=== PATIENT | female | born 1970 | race Caucasian/White ===

== ENCOUNTER 2020-11-09 07:58 | Day surgery (SDC) | payer OTHER ==
[~2020-11-09] VITALS: Ht 170.2 cm; Wt 101.0 kg
[2020-11-09] MEDS ORDERED: PEPCID20 MG PO (08:18)
[2020-11-09] MEDS ORDERED: IRON325 M1 PO (08:20)
--- NOTE | 2020-11-09 11:04 | NUR ---
11/09/20 1104 Erin Evangelista 1055 PATIENT AWAKE AND TALKING APPROPRIATELY WITH STAFF. RESP EVEN AND UNLABORED, ROOM AIR SATS >95%. PATIENT C/O ABD CRAMING, ENCOURAGE TO PASS GAS. 1100 PATIENT CONTINUES TO C/O ABD CRAMPING. REPOSITIONS SELF TO LEFT SIDE IN CURLED POSITION. RESP EVEN AND UNLABORED, ROOM AIR SATS >92%.
--- NOTE | 2020-11-09 13:48 | OR ---
[facility] [address] [place], [place] [address] Signed DATE OF OPERATION: 11/09/2020 SURGEON: Ina Alfaro MD PREOPERATIVE DIAGNOSES: 1. Gastroesophageal reflux with episodic dysphagia. 2. Colon screening. POSTOPERATIVE DIAGNOSES: 1. Hiatal hernia with distal esophageal stricture, no evidence of Marie's esophagus. 2. Diverticulosis of sigmoid and remaining colon. PROCEDURES: 1. Esophagogastroduodenoscopy with biopsy. 2. Total colonoscopy to cecum (difficult). ANESTHESIA: Intravenous sedation, fentanyl 275 mcg and versed 14 mg. INDICATION: This 50-year-old white woman is a patient of Izabel Donovan naturopathic physician in [place], [place]. She has complaints of reflux disease and occasions of dysphagia. She prefers pharmacology. She has taken a number of preparations for her reflux including aloe vera and other things which have had variable benefit. 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 Additionally, she has not had colonoscopy and has been recommended for screening colonoscopy as well. She is here to undergo upper endoscopy on the basis of her reflux symptoms, dysphagia and colonoscopy on the basis of screening. She understands the risks of bleeding, infection, and perforation with both procedures and wished to proceed. FINDINGS: Upper endoscopy demonstrated a moderate-sized hiatal hernia as well as a small distal esophageal stricture. The stricture was very short and was not amenable to a dilation with any significant benefit. Multiple biopsies were obtained. Additionally, she did have hiatal hernia associated with this, the stomach itself was reasonably normal. On colonoscopy, the prep was quite good, but it was quite challenging due to angulation deformity and extensive diverticular disease particularly on the left, though there were Electronically Signed By: INA ALFARO MD 11/09/20 1348 PATIENT NAME: TRENT WHITE OPERATIVE REPORT DATE OF : 70 REPORT #: [id number] PHYSICIAN: INA ALFARO MD PCP: IZABEL DONOVAN DC REPORT IS CONFIDENTIAL AND NOT TO BE RELEASED WITHOUT AUTHORIZATION [facility] [address] [place], [place] [address] Signed diverticula elsewhere throughout the colon. Complete colonoscopy was ultimately accomplished with intubation of the cecum, good visualization of the ileocecal valve and appendix. There were no other findings other than diverticulosis. DESCRIPTION OF PROCEDURE: The patient was brought to the endoscopy suite, given topical lidocaine hypopharyngeal spray anesthesia. A bite block was placed and intravenous sedation induced. The Olympus video upper endoscope was passed in the hypopharynx. The vocal cords appeared normal. Scope was advanced in the esophagus. The distal portion was a low-grade stricture, which was very short, not worrisome for malignancy. There was no associated Marie's epithelium. The scope was passed in the stomach, which was insufflated with air. Rugal folds were normal as was the antrum. The scope was passed through the pylorus into the duodenum. The duodenum was biopsied both in the bulb and 2nd portion to assess for celiac disease. The scope was withdrawn and biopsies taken of the antrum for both IRINEO and pathologic testing. Retroflexed view was undertaken showing a hiatal hernia, moderate in size. The scope was withdrawn to the distal esophagus and careful biopsies were obtained of the strictured area. This appeared most likely reflux related short-segment stricture not worrisome for malignancy, there was no associated Marie's epithelium, biopsies were taken elsewhere also. The midesophagus was biopsied, though it did not have typical appearance of the eosinophilic esophagitis. The scope was withdrawn and removed. Plans were then made for colonoscopy. Digital examination was undertaken and additional sedation given as needed. An Olympus video colonoscope was passed in the rectum and manipulated into the sigmoid, which had numerous diverticula and some angulation deformity. Various maneuvers were used to passed beyond this, which were unsuccessful. The scope was withdrawn and removed and another scope used. With time and fair amount of effort, ultimately the scope was passed beyond the sigmoid noting more diverticula of the left colon and ultimately passing the scope to the hepatic flexure. This too was somewhat challenging, but with abdominal wall stabilization and ultimately, a body position changed to supine position, the scope was passed ultimately to the cecum. The ileocecal valve and appendiceal orifice were well identified. The scope was then withdrawn and examination throughout showed no sign of abnormality specifically no polyps or colitis, but only diverticular formations. The patient was then taken to the recovery room in good condition having suffered no known complications. CONCLUDING DIAGNOSIS: 1. Hiatal hernia with distal esophagitis and low-grade stricture. 2. Extensive diverticular disease. PLAN: Electronically Signed By: INA ALFARO MD 11/09/20 1348 PATIENT NAME: TRENT WHITE OPERATIVE REPORT DATE OF : 70 REPORT #: [id number] PHYSICIAN: INA ALFARO MD PCP: IZABEL DONOVAN DC REPORT IS CONFIDENTIAL AND NOT TO BE RELEASED WITHOUT AUTHORIZATION [address] [address] Signed 1. I would have her reconsider the idea of conventional medications include Prilosec 20 mg p.o. daily with transition to Pepcid 20 mg b.i.d. in a month or so. It is uncertain if she will allow that given her proclivity for a naturopathic approach. 2. A high-fiber diet or a fiber supplement such as Citrucel one scoop p.o. daily with added fluids by mouth. I would recommend a repeat colonoscopy in 10 years as she has no other risk factors for colon cancer development. She will return to see us in approximately 4 weeks. MD ALLEN Leavitt/YENY /[id number] cc: Izabel Donovan DC Copies: IZABEL DONOVAN DC ~ Electronically Signed By: INA ALFARO MD 11/09/20 1348 PATIENT NAME: TRENT WHITE OPERATIVE REPORT DATE OF : 70 REPORT #: [id number] PHYSICIAN: INA ALFARO MD PCP: IZABEL DONOVAN DC REPORT IS CONFIDENTIAL AND NOT TO BE RELEASED WITHOUT AUTHORIZATION
--- NOTE | 2020-11-13 11:43 | PATH ---
[facility] [address] [place], [place] [address] Signed SPECIMEN(S): A DUODENUM SPECIMEN(S): B DUODENUM BULB SPECIMEN(S): C ANTRUM SPECIMEN(S): D DISTAL ESOPHAGUS SPECIMEN(S): E MIDDLE ESOPHAGUS SPECIMEN SOURCE: A. DUODENUM B. DUODENUM BULB C. ANTRUM D. DISTAL ESOPHAGUS E. MIDDLE ESOPHAGUS CLINICAL HISTORY: GERD; dysphasia; colon screening. Postop diagnosis: Diverticular disease. MICROSCOPIC DESCRIPTION: Histologic sections of all submitted blocks are examined by light microscopy. These findings, together with the gross examination, support the pathologic diagnosis. FINAL PATHOLOGIC DIAGNOSIS: A. Duodenum, biopsy: - Duodenal mucosa with no histopathologic abnormality. - Negative for increased intraepithelial lymphocytes or villous blunting. - Negative for dysplasia or malignancy. B. Duodenum, bulb, biopsy: - Duodenal bulb type mucosa with no histopathologic abnormality. - Negative for increased intraepithelial lymphocytes or villous blunting. - Negative for dysplasia or malignancy. C. Stomach, antrum, biopsy: - Antral/oxyntic mucosa with no histopathologic abnormality. - Negative for Helicobacter organisms on HE stain. - Negative for dysplasia or malignancy. D. Esophagus, distal, biopsy: - Squamous mucosa with focal fragmented intestinal type glands, acute inflammation, and reactive epithelial changes, consistent with Marie's esophagus. - Negative for dysplasia or malignancy. - See Comment. E. Esophagus, middle, biopsy: - Squamous mucosa with no histopathologic abnormality. PATIENT NAME: TRENT WHITE PATHOLOGY DATE OF : 70 REPORT #: [id number] PHYSICIAN: DRISS PATHOLOGY PCP: IZABEL DONOVAN DC REPORT IS CONFIDENTIAL AND NOT TO BE RELEASED WITHOUT AUTHORIZATION [facility] [address] [place], [place] [address] Signed - Negative for increased intraepithelial eosinophils. - Negative for dysplasia or malignancy. COMMENT: Regarding specimen D: PAS/D stain for fungal organisms is pending and will be reported in an addendum. NAL:cml:C2NR GROSS DESCRIPTION: Five specimens are received in five containers, labeled "Corina White." A. The specimen, labeled "Corina White, #1," and designated on the requisition "duodenum biopsy," is received in formalin and consists of two hess soft tissue fragments that measure 0.3 and 0.3 cm in greatest dimension. The specimen is entirely submitted in cassette (A1). B. The specimen, labeled "Corina White, #2," and designated on the requisition "duodenum bulb biopsy," is received in formalin and consists of two hess soft tissue fragments that measure 0.3 and 0.8 cm in greatest dimension. The specimen is entirely submitted in cassette (B1). C. The specimen, labeled "Corina White, #3," and designated on the requisition "antrum biopsy," is received in formalin and consists of two hess soft tissue fragments that measure 0.2 and 0.3 cm in greatest dimension. The specimen is entirely submitted in cassette (C1). D. The specimen, labeled "Corina White, #4," and designated on the requisition "distal esophagus biopsy," is received in formalin and consists of six white-hess soft tissue fragments that measure 0.2 to 0.7 cm in greatest dimension. The specimen is entirely submitted in cassette (D1). E. The specimen, labeled "Corina White #5," and designated on the requisition "middle esophagus biopsy," is received in formalin and consists of one white-hess soft tissue fragment that measures 0.6 cm in greatest dimension. The specimen is entirely submitted in cassette (E1). FB (under the direct supervision of a pathologist) The Gross Description was prepared using a voice recognition system. The report was reviewed for accuracy; however, sound-alike word errors, addition and/or deletions may occur. If there is any question about this report, please contact Client Services. PERFORMING LABORATORY: The technical component was performed by [facility], [address] [place] [id number] ([employer]: Kerry Narayanan MD; CLIA# [id number]). PATIENT NAME: TRENT WHITE PATHOLOGY DATE OF : 70 REPORT #: [id number] PHYSICIAN: DRISS ORETGA PCP: IZABEL DONOVAN DC REPORT IS CONFIDENTIAL AND NOT TO BE RELEASED WITHOUT AUTHORIZATION [facility] [address] [place], [place] [address] Signed [facility] [address] [address] (CLIA# [id number]). Diagnostician: Azalea Brown MD Pathologist Electronically Signed 11/13/2020 Copies: ~ PATIENT NAME: TRENT WHITE PATHOLOGY DATE OF : 70 REPORT #: [id number] PHYSICIAN: DRISS ORTEGA PCP: IZABEL DONOVAN DC REPORT IS CONFIDENTIAL AND NOT TO BE RELEASED WITHOUT AUTHORIZATION
== END 2020-11-09 11:40 | disposition home or self-care (01) ==
LOC: OPS 07:58 → DS 08:04 → OPS 09:30 → DS 10:00 → OPS 11:40
PROVIDERS: ATTEND Surgery
PROC: 0DB68ZX Excision of Stomach, Via Natural or Artificial Opening Endoscopic, Diagnostic (ICD-10-PCS; principal; 2020-11-09 09:30)
PROC: 0DJD8ZZ Inspection of Lower Intestinal Tract, Via Natural or Artificial Opening Endoscopic (ICD-10-PCS; principal; 2020-11-09 09:30)
PROC: 0DB98ZX Excision of Duodenum, Via Natural or Artificial Opening Endoscopic, Diagnostic (ICD-10-PCS; principal; 2020-11-09 09:30)
PROC: 0DB28ZX Excision of Middle Esophagus, Via Natural or Artificial Opening Endoscopic, Diagnostic (ICD-10-PCS; principal; 2020-11-09 09:30)
PROC: 0DB38ZX Excision of Lower Esophagus, Via Natural or Artificial Opening Endoscopic, Diagnostic (ICD-10-PCS; 2020-11-09 09:30)
DX: Z12.11 Encounter for screening for malignant neoplasm of colon (principal); K21.00 Gastro-esophageal reflux disease with esophagitis, without bleeding; K44.9 Diaphragmatic hernia without obstruction or gangrene; K22.2 Esophageal obstruction; K57.30 Diverticulosis of large intestine without perforation or abscess without bleeding; F17.290 Nicotine dependence, other tobacco product, uncomplicated; Z88.0 Allergy status to penicillin
CPT/HCPCS: 84703; 99153; G0500; J2250; J3010; J7121

== ENCOUNTER 2022-05-04 23:13 | Emergency (ER) | payer OTHER ==
[~2022-05-04] VITALS: Ht 170.2 cm; Wt 100.7 kg
[~2022-05-04 23:13] MED LIST: IRON325 M1 PO; PEPCID20 MG PO
--- NOTE | 2022-05-05 16:10 | EKG ---
[facility] [address] [facility] [place] [address] Signed Sinus rhythm with 1st degree AV block Otherwise normal ECG No previous ECGs available Confirmed by MALLIKA GARCÍA MD ([id number]) on 05/05/2022 4:10:37 PM Electronically Signed By: MALLIKA GARCÍA MD 05/05/22 1610 PATIENT NAME: TRENT WHITE Electrocardiogram DATE OF : 70 PHYSICIAN: MALLIKA GARCÍA MD REPORT #: [id number] REPORT IS CONFIDENTIAL AND NOT TO BE RELEASED WITHOUT AUTHORIZATION
== END 2022-05-05 02:02 | disposition home or self-care (01) ==
LOC: ED 23:13
DX: R55 Syncope and collapse (principal); R20.2 Paresthesia of skin; Z87.891 Personal history of nicotine dependence
CPT/HCPCS: 36415; 70450; 70496; 70498; 80053; 85025; 85610; 85730; 93005; 93010; 99284-25; Q9967